=== PATIENT | male | born 1960 | race Two or more races ===

== ENCOUNTER 2020-02-14 10:29 | Inpatient (IN) | payer MEDICARE, MEDICAID ==
[~2020-02-14] VITALS: Ht 170.2 cm; Wt 88.5 kg
[2020-02-14 11:08] LABS: BASOPHILS % 0.5 % (0.0-2.0); EOSINOPHILS % 0.6 % (0.0-5.0); HEMATOCRIT. 37.7 % (42.0-52.0); HEMOGLOBIN. 12.4 g/dL (14.0-18.0); LYMPHOCYTES % 7.1 % (20.0-50.0); MEAN CORPUSCULAR HEMOGLOBIN 29.4 pg (28.0-32.0); MEAN CORPUSCULAR VOLUME 89.4 fL (80.0-94.0); MEAN PLATELET VOLUME 8.3 fl (7.4-10.4); MONOCYTES % 7.9 % (2.0-8.0); NEUTROPHILS % 83.9 % (40.0-76.0); PLATELET 67 x1000/uL (130-400); RED BLOOD CELL COUNT 4.22 mill/uL (4.7-6.1); RED CELL DISTRIBUTION WIDTH 14.7 % (11.6-14.6)
[2020-02-14 11:14] LABS: CHLORIDE 96 mEq/L (98-107)
[2020-02-14] MEDS ORDERED: INSULIN REGULAR (HUMULIN R) 300UNITS/3ML VIAL IV ONE (11:30)
[2020-02-14] MEDS ORDERED: CALCIUM CHLORIDE 1,000 MG in DEXT 5% WATER 100 ML IV ONE (11:30)
[2020-02-14] MEDS ORDERED: DEXTROSE 50% WATER 50ML SYRINGE IV ONE (11:30)
[2020-02-14] MEDS ORDERED: ALBUTEROL (0.083%) 2.5MG/3ML NEB HHN SCH (11:30)
[2020-02-14] MEDS ORDERED: HYDROCODONE/ACETAMINOPHEN 5/325MG TABLET PO PRN (14:45)
[2020-02-14] MEDS ORDERED: IPRATROPIUM/ALBUTEROL 0.5-3(2.5)MG/3ML NEB HHN PRN (14:45)
[2020-02-14] MEDS ORDERED: ONDANSETRON HCL 4MG/2ML INJ IV PRN (14:45)
[2020-02-14] MEDS ORDERED: ENOXAPARIN 40MG/0.4ML SYR SUBCUT SCH (17:00)
[2020-02-14] MEDS: ACETAMINOPHEN 325MG TABLET PO PRN (17:03)
[2020-02-14] MEDS: AMLODIPINE 5MG TABLET PO SCH (21:00)
[2020-02-15 05:13] VITALS: BP 149/83
[2020-02-15 05:45] VITALS: BP 172/83
[2020-02-15] MEDS: AMLODIPINE 5MG TABLET PO SCH ×2 (09:00→20:34)
[2020-02-15] MEDS ORDERED: ENOXAPARIN 40MG/0.4ML SYR SUBCUT SCH (09:00)
[2020-02-15 12:26] LABS: BASOPHILS % 0.8 % (0.0-2.0); EOSINOPHILS % 0.2 % (0.0-5.0); HEMATOCRIT. 36.4 % (42.0-52.0); LYMPHOCYTES % 12.6 % (20.0-50.0); MEAN CORPUSCULAR HEMOGLOBIN 29.3 pg (28.0-32.0); MEAN CORPUSCULAR VOLUME 88.9 fL (80.0-94.0); MEAN PLATELET VOLUME 8.5 fl (7.4-10.4); MONOCYTES % 13.1 % (2.0-8.0); NEUTROPHILS % 73.3 % (40.0-76.0); PLATELET 65 x1000/uL (130-400); RED CELL DISTRIBUTION WIDTH 14.6 % (11.6-14.6)
[2020-02-15 16:00] VITALS: BP 145/79
[2020-02-15] MEDS ORDERED: GABA-531 PO (17:08)
[2020-02-15] MEDS ORDERED: OMEP20TA2 PO (17:08)
[2020-02-15] MEDS ORDERED: AMLO10TA4 PO (17:08)
[2020-02-15] MEDS ORDERED: CARV25TA47 PO (17:08)
[2020-02-15] MEDS ORDERED: SEVE800T8 PO (17:08)
[2020-02-15] MEDS ORDERED: INSLIS SUBCUT ×2 (17:12→17:14)
[2020-02-15] MEDS: ACETAMINOPHEN 325MG TABLET PO PRN (17:41)
[2020-02-15 20:00] VITALS: BP 141/63
[2020-02-15 21:11] LABS: CREATINE KINASE MB FRACTION 5.4 ng/mL (0.5-3.6)
[2020-02-16] VITALS: BP 153/84
[2020-02-16] MEDS: ACETAMINOPHEN 325MG TABLET PO PRN (00:48)
[2020-02-16 04:00] VITALS: BP 141/77
[2020-02-16 08:00] VITALS: BP 156/94
[2020-02-16 09:12] LABS: BASOPHILS % 0.9 % (0.0-2.0); EOSINOPHILS % 0.7 % (0.0-5.0); HEMATOCRIT. 33.7 % (42.0-52.0); HEMOGLOBIN. 11.1 g/dL (14.0-18.0); LYMPHOCYTES % 13.4 % (20.0-50.0); MEAN CORPUSCULAR HEMOGLOBIN 29.2 pg (28.0-32.0); MEAN CORPUSCULAR VOLUME 88.3 fL (80.0-94.0); MEAN PLATELET VOLUME 8.6 fl (7.4-10.4); MONOCYTES % 9.5 % (2.0-8.0); NEUTROPHILS % 75.5 % (40.0-76.0); PLATELET 62 x1000/uL (130-400); RED BLOOD CELL COUNT 3.81 mill/uL (4.7-6.1); RED CELL DISTRIBUTION WIDTH 14.9 % (11.6-14.6)
[2020-02-16] MEDS: AMLODIPINE 5MG TABLET PO SCH ×2 (09:25→21:00)
[2020-02-16 12:00] VITALS: BP 144/88
[2020-02-16] MEDS ORDERED: PIPERACILLIN/TAZOBACTAM 2.25 G in DEXTROSE 5% WATER 50 ML IV SCH (12:00)
[2020-02-16 14:03] LABS: BG BASE EXCESS -4.9 mmol/L (-2.0-2.0); BG FRACTION INSPIRED OXYGEN 21; BG HCO3 ACT 19.4 mmol/L (22.0-26.0); BG METHEMOGLOBIN 0.3 % (0.0-1.5); BG OXYGEN SATURATION 92.9 % (92.0-98.5); BG OXYHEMOGLOBIN 91.7 % (94.0-97.0); BG PCO2 33.7 mmHg (35.0-45.0); BG PH 7.379 (7.350-7.450); BG PO2 68.4 mmHg (75.0-100.0); BG SAMPLE SITE RIGHT RADIAL; BG TOTAL HEMOGLOBIN 11.4 g/dL (12.0-18.0); BG VENT MODE ROOM AIR
[2020-02-16 16:00] VITALS: BP 153/86
[2020-02-16] MEDS: ALBUTEROL 6.7GM HFA INHALER ORI SCH (18:30)
[2020-02-16] MEDS: DEXAMETHASONE 10 MG/ML VIAL IV SCH (18:52)
[2020-02-16 20:00] VITALS: BP 151/85
[2020-02-16] MEDS: PIPERACILLIN/TAZOBACTAM 2.25 G in DEXTROSE 5% WATER 50 ML IV SCH (21:08)
[2020-02-16] MEDS: FAMOTIDINE 20MG TABLET PO SCH (21:08)
[2020-02-16 21:43] LABS: D-DIMER 1.21 mg/L FEU (<0.50); INR 1.2; PROTHROMBIN TIME 12.4 sec (9.6-11.0)
[2020-02-16 21:50] LABS: CREATINE KINASE MB FRACTION 5.1 ng/mL (0.5-3.6)
[2020-02-17] VITALS: BP 171/98
[2020-02-17] MEDS: CLONIDINE 0.1MG TABLET PO PRN (01:10)
[2020-02-17 04:00] VITALS: BP 157/89
[2020-02-17] MEDS: PIPERACILLIN/TAZOBACTAM 2.25 G in DEXTROSE 5% WATER 50 ML IV SCH ×2 (05:59→13:34)
[2020-02-17] MEDS: DEXAMETHASONE 10 MG/ML VIAL IV SCH (09:45)
[2020-02-17] MEDS: AMLODIPINE 5MG TABLET PO SCH ×2 (09:46→21:19)
[2020-02-17] MEDS ORDERED: CARVEDILOL 3.125 MG TABLET PO NR (10:30)
[2020-02-17 13:41] LABS: HEMATOCRIT. 35.6 % (42.0-52.0); HEMOGLOBIN. 11.8 g/dL (14.0-18.0); MEAN CORPUSCULAR HEMOGLOBIN 29.3 pg (28.0-32.0); MEAN CORPUSCULAR VOLUME 88.5 fL (80.0-94.0); PLATELET 68 x1000/uL (130-400); RED BLOOD CELL COUNT 4.02 mill/uL (4.7-6.1); RED CELL DISTRIBUTION WIDTH 14.7 % (11.6-14.6)
[2020-02-17 14:34] LABS: CHLORIDE 92 mEq/L (98-107)
[2020-02-17] MEDS ORDERED: INSULIN LISPRO 100 UNITS/ML SUBCUT NR ×2 (16:00→17:44)
[2020-02-17] MEDS ORDERED: DEXTROSE 50% WATER 50ML SYRINGE IV PRN (17:45)
[2020-02-17] MEDS ORDERED: SODIUM POLYSTYRENE SULFONATE 15 G/60 ML BOT PO NR (18:00)
[2020-02-17] MEDS: INSULIN LISPRO 100 UNITS/ML SUBCUT SCH ×2 (19:07→21:00)
[2020-02-17] MEDS ORDERED: LEVOFLOXACIN 500 MG IV SCH (19:30)
[2020-02-17 20:00] VITALS: BP 157/80
[2020-02-17] MEDS: FAMOTIDINE 20MG TABLET PO SCH (21:19)
[2020-02-17] MEDS: BLOOD SUGAR DIAGNOSTIC STRIP TEST SCH (21:20)
[2020-02-17] MEDS: CARVEDILOL 3.125 MG TABLET PO SCH (21:20)
[2020-02-17 23:57] LABS: PLATELET ESTIMATE DECREASED
[2020-02-18] VITALS: BP 152/72
[2020-02-18 04:00] VITALS: BP 144/70
[2020-02-18] MEDS: ALBUTEROL 6.7GM HFA INHALER ORI SCH ×3 (06:30→17:41)
[2020-02-18] MEDS: BLOOD SUGAR DIAGNOSTIC STRIP TEST SCH ×4 (07:00→21:00)
[2020-02-18 08:00] VITALS: BP 175/77
[2020-02-18 08:44] LABS: HEMATOCRIT. 34.7 % (42.0-52.0); HEMOGLOBIN. 11.5 g/dL (14.0-18.0); MEAN CORPUSCULAR HEMOGLOBIN 28.9 pg (28.0-32.0); MEAN CORPUSCULAR VOLUME 87.5 fL (80.0-94.0); MEAN PLATELET VOLUME 8.8 fl (7.4-10.4); PLATELET 80 x1000/uL (130-400); RED BLOOD CELL COUNT 3.97 mill/uL (4.7-6.1); RED CELL DISTRIBUTION WIDTH 14.4 % (11.6-14.6)
[2020-02-18] MEDS: AMLODIPINE 5MG TABLET PO SCH ×2 (09:33→21:12)
[2020-02-18] MEDS: CARVEDILOL 3.125 MG TABLET PO SCH ×2 (09:33→21:13)
[2020-02-18] MEDS: INSULIN LISPRO 100 UNITS/ML SUBCUT SCH ×4 (09:34→21:13)
[2020-02-18 12:00] VITALS: BP 150/69
[2020-02-18] MEDS: HYDRALAZINE HCL 50MG TABLET PO SCH ×2 (13:21→21:12)
[2020-02-18 14:32] LABS: BG BASE EXCESS -6.4 mmol/L (-2.0-2.0); BG CARBOXYHEMOGLOBIN 0.3 % (0.5-1.5); BG DEOXYHEMOGLOBIN 6.4 % (0.0-5.0); BG HCO3 ACT 17.5 mmol/L (22.0-26.0); BG OXYGEN SATURATION 93.6 % (92.0-98.5); BG OXYHEMOGLOBIN 93.3 % (94.0-97.0); BG PH 7.383 (7.350-7.450); BG PO2 70.2 mmHg (75.0-100.0); BG SAMPLE SITE RIGHT RADIAL; BG TOTAL HEMOGLOBIN 12.4 g/dL (12.0-18.0); BG VENT MODE ROOM AIR
[2020-02-18 16:00] VITALS: BP 150/69
[2020-02-18 18:08] LABS: PLATELET ESTIMATE DECREASED
[2020-02-18] MEDS ORDERED: INSULIN LISPRO 100 UNITS/ML SUBCUT NR (19:00)
[2020-02-18 20:00] VITALS: BP 161/76
[2020-02-18] MEDS: FAMOTIDINE 20MG TABLET PO SCH (21:11)
[2020-02-19] VITALS: BP 123/65
[2020-02-19 03:09] VITALS: BP 169/99
[2020-02-19] MEDS: CLONIDINE 0.1MG TABLET PO PRN (03:15)
[2020-02-19] MEDS: ACETAMINOPHEN 325MG TABLET PO PRN ×4 (03:15→22:46)
[2020-02-19] MEDS: HYDRALAZINE HCL 50MG TABLET PO SCH ×3 (05:34→22:45)
[2020-02-19] MEDS: BLOOD SUGAR DIAGNOSTIC STRIP TEST SCH ×4 (07:20→21:00)
[2020-02-19 08:00] VITALS: BP 136/67
[2020-02-19] MEDS: INSULIN LISPRO 100 UNITS/ML SUBCUT SCH ×4 (08:39→21:00)
[2020-02-19] MEDS: AMLODIPINE 5MG TABLET PO SCH ×2 (09:00→22:46)
[2020-02-19] MEDS: CARVEDILOL 3.125 MG TABLET PO SCH ×2 (09:00→22:46)
[2020-02-19] MEDS ORDERED: LEVOFLOXACIN 500 MG IV SCH (14:00)
[2020-02-19 15:46] VITALS: BP 166/92
[2020-02-19] MEDS: LEVOFLOXACIN 500 MG IV SCH (17:55)
[2020-02-19 20:00] VITALS: BP 144/70
[2020-02-19] MEDS: FAMOTIDINE 20MG TABLET PO SCH (22:46)
[2020-02-19] MEDS: ALBUTEROL 6.7GM HFA INHALER ORI SCH (22:50)
[2020-02-20] MEDS: ALBUTEROL 6.7GM HFA INHALER ORI SCH (06:24)
[2020-02-20] MEDS: BLOOD SUGAR DIAGNOSTIC STRIP TEST SCH ×4 (06:24→21:00)
[2020-02-20] MEDS: HYDRALAZINE HCL 50MG TABLET PO SCH ×3 (06:24→21:49)
[2020-02-20 08:00] VITALS: BP 136/79
[2020-02-20 10:13] LABS: HEMOGLOBIN. 11.7 g/dL (14.0-18.0); MEAN PLATELET VOLUME 8.2 fl (7.4-10.4); PLATELET 92 x1000/uL (130-400); RED BLOOD CELL COUNT 4.02 mill/uL (4.7-6.1); RED CELL DISTRIBUTION WIDTH 14.4 % (11.6-14.6)
[2020-02-20] MEDS: ACETAMINOPHEN 325MG TABLET PO PRN ×2 (10:14→21:50)
[2020-02-20] MEDS: AMLODIPINE 5MG TABLET PO SCH ×2 (10:14→21:51)
[2020-02-20] MEDS: CARVEDILOL 3.125 MG TABLET PO SCH ×2 (10:14→21:49)
[2020-02-20] MEDS: INSULIN LISPRO 100 UNITS/ML SUBCUT SCH ×4 (10:18→22:02)
[2020-02-20 12:37] LABS: BG BASE EXCESS -2.2 mmol/L (-2.0-2.0); BG CARBOXYHEMOGLOBIN 0.1 % (0.5-1.5); BG DEOXYHEMOGLOBIN 7.6 % (0.0-5.0); BG METHEMOGLOBIN 0.2 % (0.0-1.5); BG OXYGEN SATURATION 92.4 % (92.0-98.5); BG OXYHEMOGLOBIN 92.1 % (94.0-97.0); BG PCO2 31.1 mmHg (35.0-45.0); BG PH 7.448 (7.350-7.450); BG SAMPLE SITE RIGHT RADIAL; BG TOTAL HEMOGLOBIN 11.8 g/dL (12.0-18.0); BG VENT MODE ROOM AIR
[2020-02-20] MEDS: DEXAMETHASONE 4MG/ML 1ML VIAL IV SCH (14:37)
[2020-02-20 18:33] LABS: PLATELET ESTIMATE DECREASED
[2020-02-20 20:00] VITALS: BP 142/87
[2020-02-20] MEDS: FAMOTIDINE 20MG TABLET PO SCH (21:49)
[2020-02-21] MEDS: HYDRALAZINE HCL 50MG TABLET PO SCH ×3 (05:27→21:43)
[2020-02-21 06:28] LABS: HEMOGLOBIN 11.9 g/dL (14.0-18.0); MEAN CORPUSCULAR HEMOGLOBIN 29.5 pg (28.0-32.0); PLATELET 101 x1000/uL (130-400); RED BLOOD CELL COUNT 4.03 mill/uL (4.7-6.1); RED CELL DISTRIBUTION WIDTH 14.3 % (11.6-14.6)
[2020-02-21] MEDS: BLOOD SUGAR DIAGNOSTIC STRIP TEST SCH ×4 (06:38→20:43)
[2020-02-21] MEDS: INSULIN LISPRO 100 UNITS/ML SUBCUT SCH ×4 (06:49→21:45)
[2020-02-21 09:42] VITALS: BP 138/75
[2020-02-21 09:49] LABS: BG BASE EXCESS -5.5 mmol/L (-2.0-2.0); BG CARBOXYHEMOGLOBIN 1.1 % (0.5-1.5); BG DEOXYHEMOGLOBIN 7.6 % (0.0-5.0); BG FRACTION INSPIRED OXYGEN 21; BG HCO3 ACT 16.6 mmol/L (22.0-26.0); BG METHEMOGLOBIN 0.3 % (0.0-1.5); BG OXYGEN SATURATION 92.3 % (92.0-98.5); BG PCO2 23.9 mmHg (35.0-45.0); BG PO2 64.9 mmHg (75.0-100.0); BG SAMPLE SITE RIGHT RADIAL; BG TOTAL HEMOGLOBIN 12.6 g/dL (12.0-18.0); BG VENT MODE ROOM AIR
[2020-02-21] MEDS: DEXAMETHASONE 4MG/ML 1ML VIAL IV SCH (10:20)
[2020-02-21] MEDS: CARVEDILOL 3.125 MG TABLET PO SCH ×2 (10:21→21:44)
[2020-02-21] MEDS: AMLODIPINE 5MG TABLET PO SCH ×2 (10:21→21:43)
[2020-02-21] MEDS ORDERED: INSULIN GLARGINE UD 100 UNITS/ML SYR SUBCUT NR (12:30)
[2020-02-21] MEDS: LEVOFLOXACIN 500 MG IV SCH (17:00)
[2020-02-21] MEDS: ENOXAPARIN 30MG/0.3ML SYR SUBCUT SCH (18:36)
[2020-02-21 20:00] VITALS: BP 137/86
[2020-02-21] MEDS: FAMOTIDINE 20MG TABLET PO SCH (21:43)
[2020-02-21] MEDS: INSULIN GLARGINE UD 100 UNITS/ML SYR SUBCUT SCH (23:20)
[2020-02-22] MEDS: HYDRALAZINE HCL 50MG TABLET PO SCH ×2 (05:54→14:00)
[2020-02-22 06:38] LABS: HEMOGLOBIN 11.6 g/dL (14.0-18.0); MEAN CORPUSCULAR HEMOGLOBIN 29.4 pg (28.0-32.0); MEAN CORPUSCULAR VOLUME 86.5 fL (80.0-94.0); PLATELET 119 x1000/uL (130-400); RED BLOOD CELL COUNT 3.93 mill/uL (4.7-6.1)
[2020-02-22] MEDS: BLOOD SUGAR DIAGNOSTIC STRIP TEST SCH ×3 (06:45→16:49)
[2020-02-22 08:00] VITALS: BP 147/96
[2020-02-22] MEDS: AMLODIPINE 5MG TABLET PO SCH (09:00)
[2020-02-22] MEDS: CARVEDILOL 3.125 MG TABLET PO SCH (09:00)
[2020-02-22] MEDS: DEXAMETHASONE 4MG/ML 1ML VIAL IV SCH (09:53)
[2020-02-22] MEDS: INSULIN LISPRO 100 UNITS/ML SUBCUT SCH ×3 (09:53→18:10)
[2020-02-22] MEDS: INSULIN GLARGINE UD 100 UNITS/ML SYR SUBCUT SCH (10:29)
[2020-02-22] MEDS: ENOXAPARIN 30MG/0.3ML SYR SUBCUT SCH (14:57)
[2020-02-22] MEDS ORDERED: DEXA2TAB PO (15:13)
[2020-02-22] MEDS ORDERED: ALBU90AE INH (15:13)
[2020-02-22 16:15] LABS: HEPATITIS B SURFACE ANTIGEN NEGATIVE
[2020-02-22 16:45] LABS: HEPATITIS A AB IGM NEGATIVE (NEGATIVE)
[2020-02-22 18:16] VITALS: BP 137/78
[2020-02-25 13:06] LABS: HIV SCREEN 4G Non Reactive (Non Reactive)
== END 2020-02-22 20:15 | disposition home or self-care (01) | DRG 177 ==
LOC: ER 10:54 → MICUSO 12:56 → 7WST 02-15 03:53 → 6WST 02-19 01:49
PROVIDERS: ADMIT Internal Medicine; ATTEND Internal Medicine
PROC: 5A1D70Z Performance of Urinary Filtration, Intermittent, Less than 6 Hours Per Day (ICD-10-PCS; principal; 2020-02-15)
PROC: 5A1D70Z Performance of Urinary Filtration, Intermittent, Less than 6 Hours Per Day (ICD-10-PCS; 2020-02-18)
PROC: 5A1D70Z Performance of Urinary Filtration, Intermittent, Less than 6 Hours Per Day (ICD-10-PCS; 2020-02-22)
DX: U07.1 COVID-19 (principal); N18.6 End stage renal disease; J12.82 Pneumonia due to coronavirus disease 2019; I12.0 Hypertensive chronic kidney disease with stage 5 chronic kidney disease or end stage renal disease; D61.818 Other pancytopenia; E87.5 Hyperkalemia; R09.02 Hypoxemia; R77.8 Other specified abnormalities of plasma proteins; E11.65 Type 2 diabetes mellitus with hyperglycemia; T38.0X5A Adverse effect of glucocorticoids and synthetic analogues, initial encounter; Z79.4 Long term (current) use of insulin; Z99.2 Dependence on renal dialysis; Z79.899 Other long term (current) drug therapy; Y92.89 Other specified places as the place of occurrence of the external cause; R06.03 Acute respiratory distress
CPT/HCPCS: 36415; 36600; 71045; 80048; 80053; 80061; 82375; 82550; 82553; 82805; 82962; 83036; 84132; 84484; 85025; 85027; 85379; 86141; 86705; 86709; 86803; 86850; 86900; 87340; 87389; 87426; 93005; 99291; J1100; J1650; J1815; J1956; J2543; J3490; J7040; J7060